=== PATIENT | female | born 1970 | race Caucasian/White ===

== ENCOUNTER 2020-08-07 12:46 | Emergency (ER) | payer OTHER ==
[~2020-08-07] VITALS: Ht 162.6 cm; Wt 134.0 kg
--- NOTE | 2020-08-07 13:25 | PHYS DOC ---
Past Medical History Past Medical History: Anxiety, Diabetes-Type II, High Cholesterol, Hypertension Past Surgical History: Cholecystectomy, , Hysterectomy, Tonsillectomy, Other Additional Past Surgical Histo: L ankle surgery Smoking Status: Never Smoker Alcohol Use: None General Adult EDM: Chief Complaint: MEDICAL CLEARANCE HPI: HPI: Patient is a 49 year old female presenting to the ED today for medical clearance to go to drug rehab facility. 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 She got a bed at [facility] and they requested her to be cleared medically. She has no other complaints. Review of Systems: Review of Systems: Constitutional: Denies fever or chills. [] Eyes: Denies change in visual acuity. [] HENT: Denies nasal congestion or sore throat. [] Respiratory: Denies cough or shortness of breath. [] Cardiovascular: Denies chest pain or edema. [] GI: Denies abdominal pain, nausea, vomiting, bloody stools or diarrhea. [] : Denies dysuria. [] Musculoskeletal: Denies back pain or joint pain. [] Integument: Denies rash. [] Neurologic: Denies headache, focal weakness or sensory changes. [] Endocrine: Denies polyuria or polydipsia. [] Lymphatic: Denies swollen glands. [] Psychiatric: medical clearance for rehab Heart Score: Risk Factors: Risk Factors: DM, Current or recent (<one month) smoker, HTN, HLP, family history of CAD, obesity. Risk Scores: Score 0 - 3: 2.5% MACE over next 6 weeks - Discharge Home Score 4 - 6: 20.3% MACE over next 6 weeks - Admit for Clinical Observation Score 7 - 10: 72.7% MACE over next 6 weeks - Early Invasive Strategies Physical Exam: PE: Constitutional: Well developed, well nourished, no acute distress, non-toxic appearance. [] HENT: Normocephalic, atraumatic, bilateral external ears normal, oropharynx moist, no oral exudates, nose normal. [] Eyes: PERRLA, EOMI, conjunctiva normal, no discharge. [] Neck: Normal range of motion, no tenderness, supple, no stridor. [] Cardiovascular:Heart rate regular rhythm, no murmur [] Lungs & Thorax: Bilateral breath sounds clear to auscultation [] Abdomen: Bowel sounds normal, soft, no tenderness, no masses, no pulsatile masses. [] Skin: Warm, dry, no erythema, no rash. [] Back: No tenderness, no CVA tenderness. [] Extremities: No tenderness, no cyanosis, no clubbing, ROM intact, no edema. [] Neurologic: Alert and oriented X 3, normal motor function, normal sensory funct ion, no focal deficits noted. [] Psychologic: Affect normal, judgement normal, mood normal. [] Current Patient Data: Vital Signs: Vital Signs Date Time Temp Pulse Resp B/P (MAP) Pulse Ox O2 Delivery O2 Flow Rate FiO2 08/07/20 13:05 97.9 101 18 149/82 (104) 99 Room Air 97.9 EKG: EKG: [] Radiology/Procedures: Radiology/Procedures: [] Course & Med Decision Making: Course & Med Decision Making Pertinent Labs and Imaging studies reviewed. (See chart for details) This is a 49-year-old female patient presented to the ED today for medical clearance to go to drug rehab after using hydrocodone for 2 months for an ankle fracture. Patient was cleared. She is heading at [facility] drug re[facility] right now. Tarah Disclaimer: Tarah Disclaimer: This electronic medical record was generated, in whole or in part, using a voice recognition dictation system. Departure Departure Impression: Primary Impression: Medical clearance for psychiatric admission Disposition: 01 DC HOME SELF CARE/HOMELESS Condition: STABLE Patient Instructions: Medical Screening Exam Additional Instructions: You have been medically cleared Please head to [facility] drug rehab ARMANDO VILLELA APRN Aug 07, 2020 13:25
[2020-08-07 13:35] VITALS: BP 141/80
== END 2020-08-07 13:35 | disposition home or self-care (01) ==
LOC: ER 12:46
DX: Z04.6 Encounter for general psychiatric examination, requested by authority (principal); E78.00 Pure hypercholesterolemia, unspecified; E11.9 Type 2 diabetes mellitus without complications; I10 Essential (primary) hypertension; F41.9 Anxiety disorder, unspecified
CPT/HCPCS: 99281; 99283